=== PATIENT | male | born 2000 | race Caucasian/White ===

== ENCOUNTER 2019-12-04 06:29 | Emergency (ER) | payer OTHER, SELFPAY ==
[2019-12-04 06:36] VITALS: BP 147/82; PULSE 69; RESP 20; TEMP 36.5; O2SAT 99; BMI 23.0
--- NOTE | 2019-12-04 06:39 | ED_ITS ---
HPI - General Adult <Jairo Rust DO - Last Filed: 12/04/19 19:00> General Chief complaint: Abdominal Pain Stated complaint: 'need an IV' Time Seen by Provider: 12/04/19 06:35 Source: patient Mode of arrival: Ambulatory Limitations: no limitations History of Present Illness HPI narrative: 18-year-old male here for evaluation of abdominal pain, multiple episodes of vomiting. He states the symptoms been going on for the past 12-24 hours. It started after he went on a very long hike yesterday. He did state that he drank some unfiltered water. Has not had any fevers or diarrhea. No blood in his vomit. No other medical problems. Has not tried anything for symptoms prior to arrival Related Data Previous Rx's Medication Instructions Recorded ondansetron 4 mg PO Q8H PRN #10 tab 12/04/19 Allergies Allergy/AdvReac Type Severity Reaction Status Date / Time No Known Drug Allergies Allergy Verified 12/04/19 06:52 Review of Systems <Jairo Rust DO - Last Filed: 12/04/19 19:00> Constitutional Constitutional: Denies fever(s) Cardiovascular Cardiovascular: Denies chest pain and Denies dyspnea Respiratory Respiratory: Denies dyspnea Gastrointestinal Gastrointestinal: Reports abdominal pain, Denies change in bowel habits, Reports nausea and Reports vomiting Genitourinary Genitourinary: Denies dysuria Genitourinary: Denies dysuria Musculoskeletal Musculoskeletal: Denies arthralgias and Denies myalgias Integumentary/Breasts Skin/Breast: Denies rash Neurologic Neurologic: Denies behavioral changes Psychiatric Psychiatric: Denies behavioral changes Hematologic/Lymphatic Hematologic/Lymphatic: Denies easy bleeding and Denies easy bruising Allergic/Immunologic Allergic/Immunologic: Denies urticaria Patient History <Jairo Rust DO - Last Filed: 12/04/19 19:00> Medical History Healthy adult (Acute) Social History lives independently: Yes Smoking Status: Never smoker Exam <Jairo Rust DO - Last Filed: 12/04/19 19:00> Initial Vital Signs Initial Vital Signs: Vital Signs Temperature 97.7 F 12/04/19 06:36 Pulse Rate 69 12/04/19 06:36 Respiratory Rate 20 12/04/19 06:36 Blood Pressure 147/82 H 12/04/19 06:36 Pulse Oximetry 99 12/04/19 06:36 Const General: cooperative and comfortable HENMT Head: normal to inspection and atraumatic Resp Effort & Inspection: normal respiratory effort Auscultation: clear to auscultation bilaterally Cardio Rate: regular rate Rhythm: regular rhythm GI Inspection: non-distended Palpation: soft, No firm and tender (Epigastric) Skin Lesions: no lesions Rashes: no rashes Neuro General: patient alert and patient awake Cognition: normal cognition Speech: speech normal Extrem General: normal to inspection and capillary refill normal Psych Appearance: grossly normal and well kempt <Violeta Cochran DO - Last Filed: 12/04/19 10:17> Initial Vital Signs Initial Vital Signs: Vital Signs Temperature 97.7 F 12/04/19 06:36 Pulse Rate 69 12/04/19 06:36 Respiratory Rate 20 12/04/19 06:36 Blood Pressure 147/82 H 12/04/19 06:36 Pulse Oximetry 99 12/04/19 06:36 Course <Jairo Rust DO - Last Filed: 12/04/19 19:00> Orders Ordered: Discontinued Medications Sodium Chloride (Normal Saline 0.9%) 1,000 mls @ 1,000 mls/hr IV BOLUS ONE Stop: 12/04/19 07:35 Last Infusion: 12/04/19 09:02 Dose: 0 mls/hr Documented by: Admin: 12/04/19 06:40 Dose: 1,000 mls/hr Documented by: LULY Ketorolac Tromethamine (Toradol) 30 mg IV NOW ONE Stop: 12/04/19 06:39 Last Admin: 12/04/19 06:45 Dose: 30 mg Documented by: LULY Lorazepam (Ativan) 1 mg IV NOW ONE Stop: 12/04/19 06:52 Last Admin: 12/04/19 06:55 Dose: 1 mg Documented by: LULY Ondansetron HCl (Zofran) 4 mg IV NOW ONE Stop: 12/04/19 06:37 Last Admin: 12/04/19 06:40 Dose: 4 mg Documented by: LULY Pantoprazole Sodium (Protonix) 40 mg IV NOW ONE Stop: 12/04/19 06:39 Last Admin: 12/04/19 06:45 Dose: 40 mg Documented by: LULY Vital Signs Vital signs: Vital Signs - 8 hr 12/04/19 06:36 12/04/19 07:01 12/04/19 07:30 Temperature 97.7 F Pulse Rate 69 65 71 Respiratory Rate 20 15 Blood Pressure 147/82 H 132/66 119/66 Pulse Oximetry 99 100 95 12/04/19 08:00 12/04/19 08:30 Temperature Pulse Rate 73 78 Respiratory Rate Blood Pressure 129/66 135/78 Pulse Oximetry 98 98 <Violeta Cochran, DO - Last Filed: 12/04/19 10:17> Orders Ordered: Discontinued Medications Sodium Chloride (Normal Saline 0.9%) 1,000 mls @ 1,000 mls/hr IV BOLUS ONE Stop: 12/04/19 07:35 Last Infusion: 12/04/19 09:02 Dose: 0 mls/hr Documented by: Admin: 12/04/19 06:40 Dose: 1,000 mls/hr Documented by: LULY Ketorolac Tromethamine (Toradol) 30 mg IV NOW ONE Stop: 12/04/19 06:39 Last Admin: 12/04/19 06:45 Dose: 30 mg Documented by: LULY Lorazepam (Ativan) 1 mg IV NOW ONE Stop: 12/04/19 06:52 Last Admin: 12/04/19 06:55 Dose: 1 mg Documented by: LULY Ondansetron HCl (Zofran) 4 mg IV NOW ONE Stop: 12/04/19 06:37 Last Admin: 12/04/19 06:40 Dose: 4 mg Documented by: LULY Pantoprazole Sodium (Protonix) 40 mg IV NOW ONE Stop: 12/04/19 06:39 Last Admin: 12/04/19 06:45 Dose: 40 mg Documented by: LULY Vital Signs Vital signs: Vital Signs - 8 hr 12/04/19 06:36 12/04/19 07:01 12/04/19 07:30 Temperature 97.7 F Pulse Rate 69 65 71 Respiratory Rate 20 15 Blood Pressure 147/82 H 132/66 119/66 Pulse Oximetry 99 100 95 12/04/19 08:00 12/04/19 08:30 Temperature Pulse Rate 73 78 Respiratory Rate Blood Pressure 129/66 135/78 Pulse Oximetry 98 98 Medical Decision Making <Jairo Rust DO - Last Filed: 12/04/19 19:00> Lab Data Lab results reviewed: Yes I reviewed the patient's lab results. Result diagrams: 12/04/19 06:40 12/04/19 06:40 Labs: Lab Results 12/04/19 12/04/19 Range/Units 06:40 06:40 WBC 10.5 (4.5-11.0) X10^3/uL RBC 5.10 (4.5-5.9) X10^6/uL Hgb 15.8 (13.5-17.5) g/dL Hct 45.6 (41-53) % MCV 89.4 (80-100) fL MCH 31.0 (26-34) PG MCHC 34.7 (30-36) % RDW 12.6 (11.6-14.8) % Plt Count 319 (150-400) X10^3/uL Neut % (Auto) 80.5 H (50-75) % Lymph % (Auto) 13.4 L (25-40) % [place] % (Auto) 5.6 (3-14) % Eos % (Auto) 0.1 L (2-4) % Baso % (Auto) 0.4 (0-2) % Neut # (Auto) 8500 H (1111-0952) /uL Lymph # (Auto) 1400 (6752-2721) /uL [place] # (Auto) 600 (0-900) /uL Eos # (Auto) 0 (0-450) /uL Baso # (Auto) 0 (0-100) /uL Sodium 133 L (137-145) mmol/L Potassium 4.4 (3.4-5.1) mmol/L Chloride 94 L (98-107) mmol/L Carbon Dioxide 23 (22-32) mmol/L BUN 32 H (9-20) mg/dL Creatinine 0.95 (0.66-1.25) mg/dL Estimated GFR > 60.0 (>60) mL/min BUN/Creatinine Ratio 33.7 H (6-22) Glucose 127 H (70-100) mg/dL Calcium 10.5 H (8.4-10.2) mg/dL Imaging Data Chest x-ray: Attestation: I personally reviewed and interpreted this imaging study as follows: My Impression: No free air under diaphragm, no pneumonia MDM Narrative Medical decision making narrative: Patient states that he has had too many episodes of vomiting to count. No diarrhea. Describes epigastric pain. Will give medicines for symptoms and also check electrolytes. He is afebrile. Care turned over to Dr. Dr Cochran had change of shift to follow up and disposition. <Violeta Cochran, DO - Last Filed: 12/04/19 10:17> Lab Data Lab results reviewed: Yes I reviewed the patient's lab results. Labs: Lab Results 12/04/19 12/04/19 Range/Units 06:40 06:40 WBC 10.5 (4.5-11.0) X10^3/uL RBC 5.10 (4.5-5.9) X10^6/uL Hgb 15.8 (13.5-17.5) g/dL Hct 45.6 (41-53) % MCV 89.4 (80-100) fL MCH 31.0 (26-34) PG MCHC 34.7 (30-36) % RDW 12.6 (11.6-14.8) % Plt Count 319 (150-400) X10^3/uL Neut % (Auto) 80.5 H (50-75) % Lymph % (Auto) 13.4 L (25-40) % [place] % (Auto) 5.6 (3-14) % Eos % (Auto) 0.1 L (2-4) % Baso % (Auto) 0.4 (0-2) % Neut # (Auto) 8500 H (4806-0549) /uL Lymph # (Auto) 1400 (5418-8833) /uL [place] # (Auto) 600 (0-900) /uL Eos # (Auto) 0 (0-450) /uL Baso # (Auto) 0 (0-100) /uL Sodium 133 L (137-145) mmol/L Potassium 4.4 (3.4-5.1) mmol/L Chloride 94 L (98-107) mmol/L Carbon Dioxide 23 (22-32) mmol/L BUN 32 H (9-20) mg/dL Creatinine 0.95 (0.66-1.25) mg/dL Estimated GFR > 60.0 (>60) mL/min BUN/Creatinine Ratio 33.7 H (6-22) Glucose 127 H (70-100) mg/dL Calcium 10.5 H (8.4-10.2) mg/dL Imaging Data Chest x-ray: Radiologist's Impression: PROCEDURE: XR CHEST 1V INDICATIONS: abd pain/vomiting eval for free air TECHNIQUE: One view of the chest was acquired. COMPARISON: None. FINDINGS: Surgical changes and devices: None. Lungs and pleura: Lungs are clear. No pleural effusions or pneumothorax. Right costophrenic angle is not fully included within the field of view. Mediastinum: Mediastinal contours appear normal. Heart size is normal. Bones and chest wall: No suspicious bony lesions. Overlying soft tissues appear unremarkable. IMPRESSION: No acute pulmonary process. No free air. Dictated by: Anahi Arias M.D. on 12/04/2019 at 8:56 Approved by: Anahi Arias M.D. on 12/04/2019 at 8:56 [facility] Narrative Medical decision making narrative: Patient signed out to me by Dr. Rust, I seen evaluated patient myself he is now tolerating oral fluids and is still lit tle sleepy from Ativan. A blood work is overall reassuring. Patient is called a taxi ride home. Discharge Plan Departure Patient Disposition: Home Clinical Impression: Gastroenteritis Discharge Date/Time: 12/04/19 10:17 Instructions: DI for Viral Gastroenteritis -- Adult Activity Restrictions/Additional Instructions: *You have been diagnosed with gastroenteritis *What to do: Increase fluid intake I recommend Gatorade or Gatorade like substance, gel or popsicles as well *Continue to take medications as directed Zofran 4 mg every 6-8 hours if needed for nausea or vomiting *Follow up with your primary care provider in 2-3 days *Return to ER if you should have distant vomiting increased abdominal pain inability to tolerate fluids or any new, worsening or concerning symptoms Prescriptions: New ondansetron 4 mg tablet,disintegrating 4 mg PO Q8H PRN (Reason: nausea and vomiting) Qty: 10 RF: 0 Referrals: [facility] [Outside]
[2019-12-04] MEDS: ONDANSETRON 4 MG/2 ML INJ IV (06:40)
[2019-12-04] MEDS: SODIUM CHLORIDE 0.9% 1,000 ML 1000 ML IV (06:40)
--- NOTE | 2019-12-04 06:43 | DI.RAD.S_ITS ---
PROCEDURE: XR CHEST 1V INDICATIONS: abd pain/vomiting eval for free air TECHNIQUE: One view of the chest was acquired. COMPARISON: None. FINDINGS: Surgical changes and devices: None. Lungs and pleura: Lungs are clear. No pleural effusions or pneumothorax. Right costophrenic angle is not fully included within the field of view. Mediastinum: Mediastinal contours appear normal. Heart size is normal. Bones and chest wall: No suspicious bony lesions. Overlying soft tissues appear unremarkable. IMPRESSION: No acute pulmonary process. No free air. Dictated by: Anahi Arias M.D. on 12/04/2019 at 8:56 Approved by: Anahi Arias M.D. on 12/04/2019 at 8:56
[2019-12-04] MEDS: KETOROLAC 60 MG/2 ML VIAL 30 MG IV (06:45)
[2019-12-04] MEDS: PANTOPRAZOLE 40 MG VIAL IV (06:45)
[2019-12-04] MEDS: LORazepam 2 MG/ML INJ 1 MG IV (06:55)
[2019-12-04 06:58] LABS: Add Manual Diff / Slide Review NO; Basophils Absolute Auto 0 /uL (0-100); Basophils Percent Auto 0.4 % (0-2); Eosinophils Absolute Auto 0 /uL (0-450); Eosinophils Percent Auto 0.1 % (2-4); Hematocrit 45.6 % (41-53); Hemoglobin 15.8 g/dL (13.5-17.5); Lymphocytes Absolute Auto 1400 /uL (1100-4500); Lymphocytes Percent Auto 13.4 % (25-40); Mean Corpuscular HGB Conc 34.7 % (30-36); Mean Corpuscular Volume 89.4 fL (80-100); Monocytes Absolute Auto 600 /uL (0-900); Monocytes Percent Auto 5.6 % (3-14); Neutrophils Absolute Auto 8500 /uL (1500-7000); Neutrophils Percent Auto 80.5 % (50-75); Platelet Count 319 X10^3/uL (150-400); Red Cell Distribution Width 12.6 % (11.6-14.8); White Blood Cell Count 10.5 X10^3/uL (4.5-11.0)
[2019-12-04 07:01] VITALS: BP 132/66; PULSE 65; RESP 15; O2SAT 100
[2019-12-04 07:03] LABS: BUN Creatinine Ratio 33.7 (6-22); Blood Urea Nitrogen 32 mg/dL (9-20); Calcium 10.5 mg/dL (8.4-10.2); Carbon Dioxide 23 mmol/L (22-32); Chloride 94 mmol/L (98-107); Estimated Glomerular Filt Rate > 60.0 mL/min (>60); Glucose 127 mg/dL (70-100); HEMOLYSIS < 15 (0-50); Potassium 4.4 mmol/L (3.4-5.1); Sodium 133 mmol/L (137-145)
--- NOTE | 2019-12-04 07:20 | PC.NURSE ---
Pt was yelling out while I was preparing his medications, I can't take this pain! I need something! I need help! I can't take it! I just need to sleep! No relief after zofran, toradol, and protonix. Pt medicated with 1 mg ativan per order, pt now resting with eyes closed, resps even/unlabored.
[2019-12-04 07:30] VITALS: BP 119/66; PULSE 71; O2SAT 95
[2019-12-04 08:00] VITALS: BP 129/66; PULSE 73; O2SAT 98
[2019-12-04 08:30] VITALS: BP 135/78; PULSE 78; O2SAT 98
--- NOTE | 2019-12-04 10:02 | PC.NURSE ---
Tamiko cavanaugh called for patient.
== END 2019-12-04 10:17 | disposition home or self-care (01) ==
LOC: ED 07:43
PROVIDERS: Emergency Medicine; Emergency Provider Emergency Medicine
DX: K52.9 Noninfective gastroenteritis and colitis, unspecified (principal); R11.2 Nausea with vomiting, unspecified; R10.13 Epigastric pain
CPT/HCPCS: 36415; 71045; 80048; 85025; 96361; 96374; 96375; 99284; C9113; J1885; J2060; J2405